=== PATIENT | male | born 2000 | race Caucasian/White ===

== ENCOUNTER 2020-06-20 14:44 | Emergency (ER) | payer OTHER, MEDICAID, SELFPAY ==
[2020-06-20 15:15] VITALS: BP 162/105; PULSE 101; RESP 16; TEMP 36.4; O2SAT 99; BMI 28.3
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
== END 2020-06-20 18:30 | disposition home or self-care (01) ==
PROVIDERS: Emergency Provider Internal Medicine; PCP Internal Medicine
DX: S20.213A Contusion of bilateral front wall of thorax, initial encounter (principal); R07.81 Pleurodynia; V43.52XA Car driver injured in collision with other type car in traffic accident, initial encounter; Y93.9 Activity, unspecified; Y92.410 Unspecified street and highway as the place of occurrence of the external cause; Y99.9 Unspecified external cause status
CPT/HCPCS: 71046; 99283

== ENCOUNTER 2023-10-28 08:44 | Outpatient (REF) | payer BC, SELFPAY ==
[2023-10-28 12:55] LABS: Alanine Aminotransferase 19 U/L (0-40); Albumin Level 4.8 g/dL (3.5-5.0); Alkaline Phosphatase 58 U/L (39-117); Anion Gap 10 (12-20); Aspartate Amino Transferase 18 U/L (5-37); Bilirubin Direct 0.3 mg/dL (0.0-0.5); Bilirubin Total 0.9 mg/dL (0.0-1.0); Blood Urea Nitrogen 16 mg/dL (9-16); Calcium 10.3 mg/dL (8.4-10.2); Carbon Dioxide 29 mmol/L (22-29); Chloride 105 mmol/L (96-108); Cholesterol 147 mg/dL (<200); Estimated Glomerular Filt Rate > 60; Glucose Random 91 mg/dL (60-115); HDL Cholesterol 43 mg/dL (>40); LDL Cholesterol Calculated 91 mg/dL (<100); Potassium 4.7 mmol/L (3.3-5.1); Sodium 139 mmol/L (135-145); Total Protein 7.8 g/dL (6.5-8.0); Triglycerides 65 mg/dL (<150)
[2023-10-28 19:07] LABS: Estimated Average Glucose 94 mg/dL; Hemoglobin A1c % 4.9 % (<6.0)
== END 2023-10-28 08:45 | disposition home or self-care (01) ==
LOC: HO.HHCL 08:44
PROVIDERS: Visit Provider Internal Medicine
DX: Z00.00 Encounter for general adult medical examination without abnormal findings (principal); Z13.6 Encounter for screening for cardiovascular disorders
CPT/HCPCS: 36415; 80048; 80061; 80076; 83036

== ENCOUNTER 2025-04-18 08:39 | Outpatient (REF) | payer BC, SELFPAY ==
--- OUTSIDE RECORDS SUMMARY | 2025-04-18 08:52 | XMS_ITS | Encounter Summary ---
Author Organization [facility] Address [address] [place] [address] Phone Care Team Providers Care Airfield Manager Name Role Phone Brooklyn Buchanan MD Primary Care Provider [phone] Encounter Details Date Type Department Care Team (Late st Contact Info) Description 12/30/2013 Documentation [facility] Family Medicine [address] [place] [address] Family Medicine, Physician [address], [place] [phone] Social History Tobacco Use Types Packs/Day Years Used Date Smoking Tobacco: Never Assessed Sex and Gender Information Value Date Recorded Sex Assigned at Not on file Legal Sex Male 5:22 PM EDT Gender Identity Not on file Sexual Orientation Not on file documented as of this encounter Plan of Treatment Not on file documented as of this encounter Visit Diagnoses Not on filedocumented in this encounter Care Teams Airfield Manager Relationship Specialty Start Date End Date Brooklyn Buchanan MD [address] [place] [id number] PCP - General Pediatrics 04/27/18 03/02/23 documented as of this encounter
--- OUTSIDE RECORDS SUMMARY | 2025-04-18 08:52 | XMS_ITS | Encounter Summary ---
Author Organization [facility] Address [address] [facility] [address] [place] [address] Care Team Providers Care Body Hanger Name Role Phone Sheila Gallagher MD Primary Care Provide r Encounter Details Date Type Department Care Team (Late st Contact Info) Description 12/12/2022 Orders Only [facility] MED & PEDS [address] [place], [place] [phone] Erin Corrales LPN Social History Tobacco Use Types Packs/Day Years Used Date Smoking Tobacco: Never Assessed Sex and Gender Information Value Date Recorded Sex Assigned at Male 06/23/2022 10:34 AM EDT Legal Sex Male 10:34 AM EDT Gender Identity Male 06/23/2022 10:34 AM EDT Sexual Orientation Straight 06/23/2022 10 :34 AM EDT Travel History Travel Start Travel End [facility] 03/23/2025 03/30/2025 [facility] 03/23/2025 08 025 documented as of this encounter Plan of Treatment Upcoming Encounters Date Type Department Care Team (Late Contact Info) Description 05/17/2025 10:00 AM EDT Telemedicine [facility] MEDICINE [address] [place] [address] Sheila Gallagher MD [address] [place], [place] [phone] documented as of this encounter Visit Diagnoses Not on filedocumented in this encounter Care Teams Body Hanger Relationship Specialty Start Date End Date Sheila Gallagher MD [address] [place] [phone] PCP - General Family Medicine 07/13/18 documented as of this encounter
--- OUTSIDE RECORDS SUMMARY | 2025-04-18 08:52 | XMS_ITS | Encounter Summary ---
Author Organization [facility] Address [address] [place] [address] Phone Care Team Providers Care Rn Case Manager Hospice Name Role Phone Brooklyn Buchanan MD Primary Care Provider [phone] Encounter Details Date Type Department Care Team (Late st Contact Info) Description 07/13/2013 Documentation [facility] [place] Family Medicine [address] [place] [address] Family Medicine, Physician [address] [place], [place] [phone] Social History Tobacco Use Types Packs/Day Years [...] on filedocumented in this encounter Care Teams Rn Case Manager Hospice Relationship Specialty Start Date End Date Brooklyn Buchanan MD [address] [place] [id number] PCP - General Pediatrics 04/27/18 03/02/23 documented as of this encounter
--- OUTSIDE RECORDS SUMMARY | 2025-04-18 08:52 | XMS_ITS | Clinical Summary ---
Author Organization [facility] Address [address] [place] [address] [address] [place] [address] Care Team Providers Care Supervisor Livestock Yard Name Role Phone Sheila Gallagher MD Primary Care Provide r Allergies Active Allergy Reactions Criticality Noted Date Comments Peanut Butter Flavoring Agen t (Non-Screening) 10/08/2023 Medications cholecalciferol (Vitamin D-3) 50 MCG (1999) capsuleIndicati ons:Vitamin D deficiency TAKE 1 CAPSULE BY MOUTH EVERY DAY 90 capsule 1 12/03/19 23 Active fexofenadine (Pavithra) 180 MG tabletIndicatio ns:Seasonal allergic rhinitis, unspecified trigger TAKE 1 TABLET (180 MG) BY MOUTH IN THE MORNING 90 tablet 1 12/08/19 24 Active hydroCHLOROthia zide 12.5 MG tablet TAKE 1 TABLET BY MOUTH EVERY DAY 90 tablet 01/31/20 25 Active amLODIPine (Norvasc) 10 MG tablet TAKE 1 TABLET BY MOUTH EVERY DAY 90 tablet 02/14/20 25 Active albuterol 108 (90 Base) MCG/ACT inhaler TAKE 2 PUFFS BY MOUTH EVERY 4 TO 6 HOURS NEEDED 6.7 g 3 03/01/20 25 Active EPINEPHrine (Epipen) 0.3 MG/0.3ML injection syringe INJECT 0.3 ML INTRAMUSCULARLY ONCE NEEDED FOR ANAPHYLAXIS AND CALL 911 2 each 1 03/01/20 25 Active Active Problems Problem Noted Date Diagnosed Date Encounter for preventive health examination 09/24 Assessment & Plan (04/03/2025 4:17 PM EDT): See HPI Assessment & Plan (10/08/2023 3:13 PM EST): See HPI Essential hypertension 10/02/2023 Assessment & Plan (04/03/2025 4:17 PM EDT): I advised: - Aerobic exercise to reduce BP. Initial goal of 30 min walk 3-5x/week. Increase as tolerated. - low-sodium diet (goal: <2g/day) and heart healthy diet such as DASH to reduce BP and prevent ASCVD. - Home BP monitoring 1-2 x day with goal of <140/90. - Seek immediate medical attention for chest pain, palpitations, SOB, syncope, or sudden changes in mental status. - Do not change or discontinue current prescriptions without first consulting health care provider Assessment & Plan (10/08/2023 3:13 PM EST): - Aerobic exercise to reduce BP. Initial goal of 30 min walk 3-5x/week. Increase as tolerated. - low-sodium diet (goal: <2g/day) and heart healthy diet such as DASH to reduce BP and prevent ASCVD. - Home BP monitoring 1-2 x day with goal of <140/90. - Seek immediate medical attention for chest pain, palpitations, SOB, syncope, or sudden changes in mental status. - Do not change or discontinue current prescriptions without first consulting health care provider Mild intermittent asthma 10/02/2023 024 Assessment & Plan (04/03/2025 4:17 PM EDT): Stable c/w same interventions Seasonal allergies 10/02/2023 10/02/2023 Assessment & Plan (04/03/2025 4:17 PM EDT): Stable c/w same interventions Encounters Date Type Department Care Team Description 04/03/2025 2:00 PM EDT Office Visit [facility] MEDICINE [address] [place] [phone] Sheila Gallagher MD Essential hypertension (Primary Dx); Mild intermittent asthma, unspecified whether complicated; Seasonal allergies; Encounter for preventive health examination 04/03/2025 Travel 03/31/2025 Telephone [facility] MEDICINE [address] [place] [address] Sheila Gallagher MD Chart Prep 03/27/2025 Patient Outreach [facility] [address] [place] [address] Sheila Gallagher MD Pre-visit Planning (Pre visit planning LVM ) 02/28/2025 Refill [facility] [address] [place] [address] Sheila Gallagher MD 02/09/2025 Refill [facility] MED[facility] [address] [place] [address] Sheila Gallagher MD 01/29/2025 Refill [facility] MED[facility] [address] [place] [address] Sheila Gallagher MD from Last 3 Months Immunizations Immunization Administration Dates Next Due HPV 9-Valent 04/29/2019 Influenza injectable quadriv alent preservative free 10/08/2023,08/08/2020,09/23/2019,05/14,04/22/2016 Meningococcal MCV4P [id number]-135 04/22/2016 Pfizer Covid-19 Vaccine 12+ 01/16/2021, Tdap 04/29/2019 Social History Tobacco Use Types Packs/Day Years Used Date Smoking Tobacco: Never Passive Smoke Exposure: Never Smokeless Tobacco: Never Tobacco Cessation:Counseling Given: Not Answered Depression Answer Date Recorded Patient Health Questionnaire-9 Score 0 04/03/2025 Patient Health Questionnaire-9 Score 0 04/03/2025 Last PHQ-9: Questionnaire Data Not on file 0 04/03/2025 Housing Stability Answer Date Recorded What is your housing situation today? I have josé luis delgado 10/01/[address] you li ve. Do you have problems with any of the following? None of the above 10/01/2023 Food Insecurity Answer Date Recorded Within the past 12 months, y ou worried that your food would run out before you got money to buy more: Never True 10/01/2023 Within the past 12 months,th e food you bought just didn't last and you didn't have enough money to get more: Never True 03/2024 Transportation Answer Date Recorded In the past 12 months, has l ack of transportation kept you from medical appts, meetings, work or from getting things needed for daily living? No 10/01/2023 Utilities Answer Date Recorded In the past 12 months, has t he electric, gas, oil or water company threatened to shut off services in your home? No 10/01/2023 Depression Answer Date Recorded Patient Health Questionnaire-2 Score 0 04/03/2025 Sex and Gender Information Value Date Recorded Sex Assigned at Male 06/23/2022 10:34 AM EDT Legal Sex Male 10:34 AM EDT Gender Identity Male 06/23/2022 10:34 AM EDT Sexual Orientation Straight 06/23/2022 10 :34 AM EDT Travel History Travel Start Travel End [facility] 03/23/2025 03/30/2025 [facility] and [facility] 03/23/2025 025 Last Filed Vital Signs Vital Sign Reading Time Taken Comments Blood Pressure 140/82 04/03/2025 2:27 PM EDT Pulse 77 04/03/2025 2:02 PM EDT Temperature 36.6 C (97.9 F) 04/03/2025 2:02 PM EDT Respiratory Rate 12 04/03/2025 2:02 PM EDT Oxygen Saturation 99% 04/03/2025 2:02 PM EDT Inhaled Oxygen Concentration - - Weight 75.4 kg (166 lb 2 oz) 04/03/2025 2:02 PM EDT Height 159 cm (5' 2.6 ) 04/03/2025 2:02 PM EDT Body Mass Index 29.81 04/03/2025 2:02 PM EDT Plan of Treatment Upcoming Encounters Date Type Department Care Team (Late st Contact Info) Description 05/17/2025 10:00 AM EDT Telemedicine [facility] MEDICINE [address] [place], [place] [phone] Sheila Gallagher MD [address] [place] [address] Health Maintenance Due Date Last Done Comments HIV Screening 1998 Family Planning (PISQ) 2013 Hepatitis C Screening 2016 Pneumococcal Vaccine: Pediatrics (0 to 5 Years) and At-Risk Patients (6 to 49) Years (1 of 2 - PCV) 2017 12/11/2000, 06/26/2000 COVID-19 Vaccine (3 - 2023- season) 2024 01/16/2021, 12/17/2020 SDOH Screening 10/01/2024 10/01/2023 Influenza Vaccine (#1) 2025 , 08/08/2020, 09/23/2019, Additional history exists Alcohol/Substance Use Screening 04/03/2026 04/03/2025 Depression Screening 04/03/2026 04/03/2025, 04/03/20 25 Disability Screening 04/03/2026 04/03/2025 Tobacco Screening 04/03/2026 04/03/2025 Lipid Panel 10/27/2028 10/28/2023, 12/23, 08/15/2020 DTaP/Tdap/Td Vaccines (8 - Td or Tdap) 04/29/2029 04/29/2019, 03/26/2010, 12/16/2002, Additional history exists Zoster Vaccines (1 of 2) 2048 RSV Patients and Patients Aged 60 years or older (1 - 1-dose 75+ series) 2073 Hepatitis B Vaccines Completed 07/05/1999, 02/08/1999, 1998 HIB Vaccines Completed 03/13/2000, 06/24, 04/12/1999, Additional history exists IPV Vaccines Completed 12/16/2002, 02/22, 04/12/1999, Additional history exists Hepatitis A Vaccines Completed 04/19/2015, 04/18/20 14 Meningococcal Vaccine Completed 04/22/2016, 010 HPV Vaccines Completed 04/29/2019, 03/25, 10/21/2013, Additional history exists Meningococcal B Vaccine Aged Out No l onger eligible based on patient's age to complete this topic RSV under 20 months Aged Out No longe r eligible based on patient's age to complete this topic Rotavirus Vaccines Aged Out No longer eligible based on patient's age to complete this topic Procedures Procedure Name Priority Date/Time Associated Diagnosis Comments LIPID PANEL, STANDARD Routine 10/28/2023 8:48 AM EST Encounter for preventive health examination from Last 3 Months or Most Recently Relevant to Health Maintenance Results * Lipid Panel, Standard (10/28/2023 8:48 AM EST) Triglycerides 65 <150 mg/dL [facility] Comment:Desirable Triglyceri de: less than 150 mg/dLBorderline High Triglyceride 150-199 mg/dLHigh Triglyceride: 200-499 mg/dLVery High Triglyceride: greater than or equal to 5OO mg/dL Cholesterol 147 <200 mg/dL [facility] Comment:Desirable Cholestero l: less than 200 mg/dLBorderline High Cholesterol: 200-239 mg/dLHigh Cholesterol: greater than 239 mg/dL LDL Cholesterol Calculated 91 <100 mg/dL [facility] Comment:Desirable LDL: less than 100 mg/dLNear Optimal/Above Optimal LDL: 110- 129 mg/dLBorderline High LDL: 130-159 mg/dLHigh LDL: 160-189 mg/dLVery High LDL: greater than or equal to 190 mg/dL HDL Cholesterol 43 >40 mg/dL [facility] Comment:Desirable HDL: great er than 40 mg/dL Note: This HDL assay may give artificially low results in patients with liver disease. Blood Venous blood specimen / Unknown 10/28/2023 8:48 AM EST 10/28/2023 11:18 AM EST us Sheila Aviles MD LAB BLOOD ORDERABLES Final Result [facility] [address] [place] [phone] from Last 3 Months or Most Recently Relevant to Health Maintenance [place] [address] [place] [address] HMO Care Teams Supervisor Livestock Yard Relationship Specialty Start Date End Date Sheila Gallagher MD [address] [place] [phone] PCP - General Family Medicine 07/13/18
--- OUTSIDE RECORDS SUMMARY | 2025-04-18 08:52 | XMS_ITS | Encounter Summary ---
Author Organization [employer] Address [address] [facility] [address] [place] [address] Care Team Providers Care Slot Operations Manager Name Role Phone Sheila Gallagher MD Primary Care Provide r Encounter Details Date Type Department Care Team (Late st Contact Info) Description 02/02/2023 Orders Only [facility] CH[facility] MED & PEDS [address] [place], [place] [phone] Erin Corrales LPN Social History Tobacco Use Types Packs/Day Years Used Date Smoking Tobacco: Never Assessed Sex and Gender Information Value Date Recorded Sex Assigned at Male 06/23/2022 10:34 AM EDT Legal Sex Male 10:34 AM EDT Gender Identity Male 06/23/2022 10:34 AM EDT Sexual Orientation Straight 06/23/2022 10 :34 AM EDT Travel History Travel Start Travel End [facility] 03/23/2025 03/30/2025 [facility] 03/23/2025 08 025 documented as of this encounter Plan of Treatment Upcoming Encounters Date Type Department Care Team (Late Contact Info) Description 05/17/2025 10:00 AM EDT Telemedicine [facility] MEDICINE [address] [place] [address] Sheila Gallagher MD [address] [place], [place] [phone] documented as of this encounter Visit Diagnoses Not on filedocumented in this encounter Care Teams Slot Operations Manager Relationship Specialty Start Date End Date Sheila Gallagher MD [address] [place] [phone] PCP - General Family Medicine 07/13/18 documented as of this encounter
--- OUTSIDE RECORDS SUMMARY | 2025-04-18 08:52 | XMS_ITS | Encounter Summary ---
Author Organization [facility] Address [address] [place] [address] Phone Care Team Providers Care Is Support Analyst Name Role Phone Brooklyn Buchanan MD Primary Care Provider [phone] Encounter Details Date Type Department Care Team (Late st Contact Info) Description 03/07/2015 Documentation [facility] [place] [address] [place] [address] Family Medicine, Physician [address], [place] [phone] Social History Tobacco Use Types Packs/Day Years [...] on filedocumented in this encounter Care Teams Is Support Analyst Relationship Specialty Start Date End Date Brooklyn Buchanan MD [address] [place] [phone] PCP - General Pediatrics 04/27/18 03/02/23 documented as of this encounter
--- OUTSIDE RECORDS SUMMARY | 2025-04-18 08:52 | XMS_ITS | Clinical Summary ---
Author Organization [facility] Address [address] [place] [address] Phone Care Team Providers Care Seal Extrusion Operator Name Role Phone Unavailable Primary Care Provider Unavailabl e Allergies Active Allergy Reactions Criticality Noted Date Comments Tree Nuts (Food) 04/24/2017 Medications albuterol (2.5 MG/3ML) 0.083% nebulizer solution ALBUTEROL SULFATE; inhale 1 vial in nebulizer every 4 hours as needed; 2.5 MG/3 ML (0.083 %); 12/24/2016; Active 7 Active EPINEPHrine 0.3 MG/0.3ML injection syringeIndicatio ns:Allergy to tree nuts Inject 0.3 mL (0.3 mg total) under the skin Once PRN for anaphylaxis for up to 1 dose. 1 syringe Once prn anaphylaxis 2 Syringe 1 8 Active montelukast (SINGULAIR) 10 MG tabletIndication s:Moderate persistent asthma without complication Take 1 tablet (10 mg total) by mouth nightly. 30 tablet 11 8 Active albuterol HFA (PROAIR HFA) 108 (90 Base) MCG/ACT inhalerIndicatio ns:Moderate persistent asthma without complication Inhale 2 puffs every 6 (six) hours as needed for wheezing. 1 Units 8 Active fluticasone 50 MCG/ACT nasal sprayIndications :Seasonal allergic rhinitis due to pollen, unspecified chronicity Tyler 1-2 times into each nostril daily as needed. 1 Units 6 8 Active Active Problems Problem Noted Date Diagnosed Date Chronic seasonal allergic rhinitis 05/14/2018 Overview (05/14/2018): Pavithra prn Moderate persistent asthma without complication 04/24/2017 Overview (05/14/2018): Onset date 01/01/2012; last addressed on 10/21/2013; new onset 01/02..started with cough a month ago that is responding to albuterol flovent in spring 2011, stopped in summer, restarted flovent 09/05 due to prolonged cough. Tried decreasing to QD in 11/03 but wound up with asthma in 12/04 that needed pred so back to BID flovent 110 in 12/04. Triggers--chemicals (incl chlorine), cold, allergens. Saw Dr. Quarles in summer and changed to david and sent to [facility] for allergy/ENT. . Again weaned down in and had exacerbation in sep 2015...back on flovent 110 and added singulair. Did well as of November 2015 Exacerbation with PNA in 05/09...continue flovent 110 and sing 10 PNA again diagnosed in november 2016 by -ER. Exacerbation 05/10 and increased Flovent, and only uses Singulair prn. 02/08- Weaned Flovent off and using Singulair when allergies are acting up. Assessment & Plan (05/14/2018 1:28 PM EDT): ACT 25 today. No issues since stopping Flovent. Plan to restart Flovent and Singulair as soon as cold season starts (initially thinking winter, but advised cold season has started!). Has albuterol MDI and spacer, discussed always using them together! Allergy to tree nuts 04/24/2017 Overview (02/05/2018): Epi Pen for tree nut allergy Assessment & Plan (05/14/2018 1:27 PM EDT): Does not need new Epi pen today. Overweight with body mass index (BMI) 25.0-29.9 04/07/2011 Overview (05/14/2018): Weight-lifts and very muscular. Strong FH of DM, hyperlipidemia, hypertension. Assessment & Plan (05/14/2018 1:35 PM EDT): Will check fasting glucose and lipids today given +FH and BMI. Anxiety 08/10/2009 Immunizations Immunization Administration Dates Next Due DTaP 5 12/16/2002, 0,07/05/1999,04/12,02/08/1999 HPV, Quadrivalent 04/18/2014,10/21/2013,04/15/20 13 Hep A, ped/adol 04/19/2015,04/18/2014 Hep B, ped/adol 07/05/1999,02/08/1999,1998 Hib (PRP-T) 03/13/2000, 9,04/12/1999,02/08 IPV 12/16/2002, 0,04/12/1999,02/08 Influenza Split 07/12/2013,06/23/2012,04/07/2011 Influenza, injectable, quadrivalent 06/29/2014 Influenza, injectable, quadr ivalent, preservative free 05/14/2018,05/07/2017,04/22/2016,04/19 MMR 12/16/2002,01/03/2000 Meningococcal Conj (Menactra) MCV4P 04/22/2016,0 03/26/2010 Pneumococcal Conjugate 12/11/2000,06/26/2000 Tdap 03/26/2010 Varicella 03/26/2010,01/03/2000 Family History Medical History Relation Name Comments Diabetes Maternal Grandfather Hypertension Maternal Grandfather Kidney failure Maternal Grandfather Diabetes Maternal Grandmother Hypertension Maternal Grandmother Diabetes Mother Rosalie Hyperlipidemia Mother Rosalie Hypertension Mother Rosalie Relation Name Status Comments Maternal Grandfather Alive Maternal Grandmother Mother Rosalie Alive Mother: Diabete s, Hypertension Other Family history of Migraines, Family history of Obesity, No family history of ADD/ADHD, No family history of Seizure disorder, Family history of Diabetes mellitus, Family history of Hyperlipidemia, Family history of Obesity, No family history of Sudden /[place] under age 55, Family history of Diabetes mellitus, Family history of Cancer, colon, No family history of Thrombophilia, Family history of Elevated cholesterol, No family history of Strabismus, Family history of Migraines, Family history of Heart disease, No family history of Deafness, No family history of Developmental dislocation of hip, Family history of Asthma, No family history of CVA (Stroke) Social History Tobacco Use Types Packs/Day Years Used Date Smoking Tobacco: Never Smokeless Tobacco: Never Comments:Never smoker Alcohol Use Standard Drinks/Week Comments No 0 (1 standard drink = 0.6 oz pur e alcohol) Sex and Gender Information Value Date Recorded Sex Assigned at Not on file Legal Sex Male 5:22 PM EDT Gender Identity Not on file Sexual Orientation Not on file Last Filed Vital Signs Vital Sign Reading Time Taken Comments Blood Pressure 122/68 05/14/2018 1:05 PM EDT Pulse 75 05/14/2018 1:03 PM EDT Temperature 36.6 C (97.8 F) 05/14/2018 1:03 PM EDT Respiratory Rate - - Oxygen Saturation 100% 05/16/2016 12:00 AM EDT Inhaled Oxygen Concentration - - Weight 67.9 kg (149 lb 9.6 oz) 05/14/2018 1:03 P M EDT Height 158.8 cm (5' 2.5 ) 05/14/2018 1:03 PM EDT Body Mass Index 26.93 05/14/2018 1:03 PM EDT Plan of Treatment Health Maintenance Due Date Last Done Comments DTaP,Tdap,and Td Vaccines (7 - Td or Tdap) 03/26/2020 03/26/2010, 12/16/2002, 06/26/2000, Additional history exists COVID-19 Vaccine ( season) 2024 Influenza Vaccines (#1) 2025 05/14/20 18, 05/07/2017, 04/22/2016, Additional history exists Hepatitis B Vaccines Completed 07/05/1999, 02/08/1999, 1998 HIB Vaccines Completed 03/13/2000, 06/24, 04/12/1999, Additional history exists Pneumococcal Vaccine Completed 12/11/2000, 06/26/20 IPV Vaccines Completed 12/16/2002, 02/22, 04/12/1999, Additional history exists MMR Vaccines Completed 12/16/2002, 01/03/2000 Varicella Vaccines Completed 03/26/2010, 01/03/2000 HPV Vaccines Completed 04/18/2014, 09/25, 04/15/2013 Hepatitis A Vaccines Completed 04/19/2015, 04/18/20 14 Meningococcal Vaccine Completed 04/22/2016, 010 Men B Vaccine Aged Out No longer mac roth based on patient's age to complete this topic Insurance [facility] NON PCC
--- OUTSIDE RECORDS SUMMARY | 2025-04-18 08:52 | XMS_ITS | Encounter Summary ---
Author Organization [facility] Address [address] [place] [address] Phone Care Team Providers Care Order Entry Administrator Name Role Phone Brooklyn Buchanan MD Primary Care Provider [phone] Encounter Details Date Type Department Care Team (Late st Contact Info) Description 09/16/2013 [place]ation [facility] [place] [address] [place] [address] Family Medicine, Physician [address] [place] [phone] Social History Tobacco Use Types Packs/Day Years [...] on filedocumented in this encounter Care Teams Order Entry Administrator Relationship Specialty Start Date End Date Brooklyn Buchanan MD [address] [place] [address] PCP - General Pediatrics 04/27/18 03/02/23 documented as of this encounter
--- OUTSIDE RECORDS SUMMARY | 2025-04-18 08:52 | XMS_ITS | Encounter Summary ---
Author Organization [facility] Address [address] [place] [address] Phone Care Team Providers Care Laborer Sawmill Name Role Phone Brooklyn Buchanan MD Primary Care Provider [phone] Encounter Details Date Type Department Care Team (Late st Contact Info) Description 04/09/2017 Conversion Encounter [facility] [address] [place] [address] Social History Tobacco Use Types Packs/Day Years Used Date Smoking Tobacco: Never Comments:Never smoker Sex and Gender Information Value Date Recorded Sex Assigned at Not on file Legal Sex Male 5:22 PM EDT Gender Identity Not on file Sexual Orientation Not on file documented as of this encounter Plan of Treatment Not on file documented as of this encounter Visit Diagnoses Not on filedocumented in this encounter Care Teams Laborer Sawmill Relationship Specialty Start Date End Date Brooklyn Buchanan MD [address] [place] [address] PCP - General Pediatrics 04/27/18 03/02/23 documented as of this encounter
--- OUTSIDE RECORDS SUMMARY | 2025-04-18 08:52 | XMS_ITS | Encounter Summary ---
Author Organization [facility] Address [address] [place] [address] Phone Care Team Providers Care Dictating Machine Transcriber Name Role Phone Brooklyn Buchanan MD Primary Care Provider Encounter Details Date Type Department Care Team (Late st Contact Info) Description 12/19/2016 Documentation [facility] [place] [address] [place] [address] Family Medicine, Physician [facility] [place] [phone] Social History Tobacco Use Types Packs/Day Years [...] on filedocumented in this encounter Care Teams Dictating Machine Transcriber Relationship Specialty Start Date End Date Brooklyn Buchanan MD [address] [place] [address] PCP - General Pediatrics 04/27/18 03/02/23 documented as of this encounter
--- OUTSIDE RECORDS SUMMARY | 2025-04-18 08:52 | XMS_ITS | Encounter Summary ---
Author Organization [facility] Address [address] [place] [address] Phone Care Team Providers Care Blending Coordinator Name Role Phone Brooklyn Buchanan MD Primary Care Provider Encounter Details Date Type Department Care Team (Late st Contact Info) Description 12/23/2016 Documentation [facility] [place] [address] [place] [address] Family Medicine, Physician [facility] [place] [phone] Social History Tobacco Use Types Packs/Day Years [...] on filedocumented in this encounter Care Teams Blending Coordinator Relationship Specialty Start Date End Date Brooklyn Buchanan MD [address] [place] [address] PCP - General Pediatrics 04/27/18 03/02/23 documented as of this encounter
--- OUTSIDE RECORDS SUMMARY | 2025-04-18 08:52 | XMS_ITS | Encounter Summary ---
Author Organization [facility] Address [address] [place] [address] Phone Care Team Providers Care Citrix Consultant Name Role Phone Brooklyn Buchanan MD Primary Care Provider [phone] Encounter Details Date Type Department Care Team (Late st Contact Info) Description 09/19/2013 Documentation [facility] [place] [address] [place] [address] Family Medicine, Physician [address] [place] [phone] Social History Tobacco Use Types Packs/Day Years [...] on filedocumented in this encounter Care Teams Citrix Consultant Relationship Specialty Start Date End Date Brooklyn Buchanan MD [address] [place] [address] PCP - General Pediatrics 04/27/18 03/02/23 documented as of this encounter
--- OUTSIDE RECORDS SUMMARY | 2025-04-18 08:52 | XMS_ITS | Encounter Summary ---
Author Organization [facility] Address [address] [place] [address] Phone Care Team Providers Care Round Kiln Drawer Name Role Phone Brooklyn uBchanan MD Primary Care Provider [phone] Encounter Details Date Type Department Care Team (Late st Contact Info) Description 07/01/2013 Documentation [facility] [place] [address] [place] [address] Family Medicine, Physician [address] [place] [phone] Social History Tobacco Use Types Packs/Day Years [...] on filedocumented in this encounter Care Teams Round Kiln Drawer Relationship Specialty Start Date End Date Brooklyn Buchanan MD [address] [place] [address] PCP - General Pediatrics 04/27/18 03/02/23 documented as of this encounter
--- OUTSIDE RECORDS SUMMARY | 2025-04-18 08:52 | XMS_ITS | Encounter Summary ---
Author Organization [facility] Address [address] [place] [address] Phone Care Team Providers Care Manager Developmental Name Role Phone Brooklyn Buchanan MD Primary Care Provider [phone] Encounter Details Date Type Department Care Team (Late st Contact Info) Description 06/14/2014 Documentation [facility] [place] [address] [place] [address] Family Medicine, Physician [address] [place] [phone] Social History Tobacco Use Types Packs/Day Years [...] on filedocumented in this encounter Care Teams Manager Developmental Relationship Specialty Start Date End Date Brooklyn Buchanan MD [address] [place] [address] PCP - General Pediatrics 04/27/18 03/02/23 documented as of this encounter
--- OUTSIDE RECORDS SUMMARY | 2025-04-18 08:52 | XMS_ITS | Encounter Summary ---
Author Organization [facility] Address [address] [place] [address] Phone Care Team Providers Care Financial Data Analyst Name Role Phone Brooklyn Buchanan MD Primary Care Provider [phone] Reason for Visit * Reason Comments Med Refill Encounter Details Date Type Department Care Team (Late st Contact Info) Description 05/26/2017 Refill [facility] [place] [address] [place] [address] Mercedes Jesus MD Seasonal allergic rhinitis due to pollen, unspecified chronicity (Primary Dx) Social History Tobacco Use Types Packs/Day Years [...] on file documented as of this encounter Miscellaneous Notes * Telephone Encounter - Ashlyn Thompson LPN - 05/26/2017 12:24 PM EDT Last pe 04/08 documented in this encounter Plan of Treatment Not on file documented as of this encounter Visit Diagnoses Diagnosis Seasonal allergic rhinitis due to pollen, unspecified chronicity- Primary documented in this encounter Care Teams Financial Data Analyst Relationship Specialty Start Date End Date Brooklyn Buchanan MD [address] [place] [address] PCP - General Pediatrics 04/27/18 03/02/23 documented as of this encounter
[2025-04-18 11:05] LABS: MANUAL DIFF FLAG NO
[2025-04-18 11:13] LABS: Hematocrit 42.0 % (42.0-52.0); Hemoglobin 14.8 g/dl (14.0-18.0); Imm Gran Abs Auto 0.03 X10*3/uL (0.00-0.03); Imm Gran Pct Auto 0.6 % (0.0-0.4); Lymphocytes Absolute Auto 1.7 X10*3/uL (1.2-4.9); Mean Corpuscular HGB Conc 35.2 g/dl (31.0-36.0); Mean Corpuscular Hemoglobin 30.8 pg (27.0-33.0); Mean Corpuscular Volume 87.3 fL (80.0-98.0); NRBC Abs Auto 0.000 X10*3/uL (0.0-0.012); NRBC Pct Auto 0.0 /100WBC (0.0-0.2); Platelet Count 323 X10*3/uL (160-400); Red Blood Count 4.81 X10*6/uL (4.60-5.80); White Blood Count 5.1 X10*3/uL (4.8-10.8)
[2025-04-18 11:26] LABS: Hemoglobin A1C 124.2893 umol/L; Total Hemoglobin (HGBA1C) 3833.2378 umol/L
[2025-04-18 11:43] LABS: HIV Num 1 0.08 S/CO (0.00-0.99); ~HepC Num1 0.20 S/CO (0.00-0.79); ~Hepatitis C Antibody Nonreactive (Nonreactive)
[2025-04-18 11:48] LABS: Alanine Aminotransferase 25 U/L (0-40); Albumin Level 4.7 g/dL (3.5-5.0); Alkaline Phosphatase 52 U/L (39-117); Anion Gap 12 (12-20); Aspartate Amino Transferase 29 U/L (5-37); Blood Urea Nitrogen 20 mg/dL (9-16); Calcium 9.5 mg/dL (8.4-10.2); Carbon Dioxide 26 mmol/L (22-29); Chloride 105 mmol/L (96-108); Cholesterol 151 mg/dL (<200); Estimated Glomerular Filt Rate > 60; HDL Cholesterol 40 mg/dL (>40); Potassium 3.8 mmol/L (3.3-5.1); Sodium 139 mmol/L (135-145); Total Protein 7.3 g/dL (6.5-8.0); Triglycerides 61 mg/dL (<150)
== END 2025-04-18 08:40 | disposition home or self-care (01) ==
LOC: HO.HHCL 08:39
PROVIDERS: PCP Internal Medicine; Visit Provider Internal Medicine
DX: Z13.1 Encounter for screening for diabetes mellitus (principal); I10 Essential (primary) hypertension
CPT/HCPCS: 36415; 80053; 80061; 82306; 83036; 84443; 85025; 86803; 87389